=== PATIENT | female | born 1965 | race Caucasian/White ===

== ENCOUNTER 2020-06-18 13:20 | Inpatient (IN) | payer BC, SELFPAY ==
[2020-06-18] MEDS ORDERED: Ondansetron PF 4 MG/2 ML Vial ONE (13:39)
[2020-06-18 14:22] LABS: #Eosinphils 0.1 thou/uL (0.0-0.7); #Lymphocytes 0.9 thou/uL (1.20-3.40); #Monocytes 0.5 thou/uL (0.11-0.59); #Neutrophils 4.2 thou/uL (1.40-6.50); %Basophils 0.6 % (0.0-1.0); %Lymphocytes 15.9 % (21.0-51.0); %Monocytes 8.9 % (0.0-10.0); %Neutrophils 73.6 % (42.0-75.0); Mean Corpuscular HGB CONC 29.8 g/dL (32.0-36.0); Mean Corpuscular Hemoglobin 22.5 pg (27.0-31.0); Mean Corpuscular Volume 75.4 fL (78.0-98.0); Platelet Count 217 thou/uL (130-400); RBC Distribution Width 20.6 % (11.5-14.5); Red Blood Cell (RBC) Count 3.55 mill/uL (4.20-5.40); White Blood Cell (WBC) Count 5.6 thou/uL (4.8-10.8)
[2020-06-18 14:44] LABS: ALT (SGPT) 29 U/L (8-55); AST (SGOT) 66 U/L (5-34); Albumin 2.8 g/dL (3.5-5.0); Alkaline Phosphatase 106 U/L (40-110); Anion Gap 15 mmol/L (10-20); Anisocytosis SLIGHT = 6-15 cells (100X) (0-5/hpf); BUN (Urea Nitrogen) 5 mg/dL (9.8-20.1); Bilirubin, Total 0.6 mg/dL (0.2-1.2); Calc. Creatinine Clearance 0 mL/min (70-130); Calcium 8.1 mg/dL (7.8-10.44); Carbon Dioxide 20 mmol/L (22-29); Chloride 105 mmol/L (98-107); Globulin 4.7 g/dL (2.4-3.5); Glucose 96 mg/dL (70-105); Hypochromia MODERATE=16-30 cells (100X) (0-5/hpf); MDiff Complete? YES; Microcytosis SLIGHT = 6-15 cells (100X) (0-5/hpf); Platelet Morphology Comment Appears Adequate; Polychromasia SLIGHT = 2-3 cells (100X) (0-2/hpf); Potassium 3.9 mmol/L (3.5-5.1); Protein, Total 7.5 g/dL (6.0-8.3); Reflex for Review?? NO; Sodium 136 mmol/L (136-145); Target Cells MODERATE= 6-15 cells (100X) (0-1/hpf); Tear Drops SLIGHT = 2-5 cells (100X) (0-1/hpf)
[2020-06-18 17:21] LABS: Bilirubin Negative (Negative); Blood, Urine Negative (Negative); Clarity Clear (Clear); Glucose, Urine (Dipstick) Normal (Negative); Ketone, Urine Negative (Negative); Leukocyte 75 Leu/uL (Negative); Nitrite Negative (Negative); Protein, Urine (Dipstick) Negative (Neg-Trace); RBC/HPF 0-3 HPF (0-3); Specific Gravity, Urine 1.012 (1.002-1.036); Squamous Epithelial 0-3 HPF (0-3); Urobilinogen Normal mg/dL (Less than 2); WBC/HPF 0-3 HPF (0-3)
[2020-06-18 17:31] LABS: Bacteria/HPF 2+ HPF (None Seen)
[2020-06-18 17:45] LABS: Iron 19 ug/dL (50-170); Iron Binding Capacity, Total 296 mcg/dL (265-497)
[2020-06-18 17:45] LABS: Acetaminophen Less than 6.0 mcg/mL (10.0-30.0); Alcohol Less than 10 mg/dL (Less than 10); Salicylate Less than 8.0 mg/dL (15.0-30.0)
[2020-06-18 17:50] LABS: Troponin I Less than 0.010 ng/mL (< 0.028)
[2020-06-18] MEDS ORDERED: Ondansetron ODT 4 MG TAB PO PRN (18:16)
[2020-06-18] MEDS ORDERED: Ondansetron PF 4 MG/2 ML Vial IVP PRN (18:16)
[2020-06-18] MEDS ORDERED: Senokot S 8.6-50 MG TAB PO PRN (18:16)
[2020-06-18] MEDS ORDERED: Bisacodyl 5 MG TAB PO PRN (18:16)
[2020-06-18 18:21] VITALS: BMI 31.6
[2020-06-18] MEDS ORDERED: Gabapentin 300 MG CAP PO SCH (20:30)
[2020-06-18 20:59] LABS: Troponin I Less than 0.010 ng/mL (< 0.028)
[2020-06-18] MEDS: Polyethylene Glycol 3350 17 GM Packet PO SCH (21:59)
[2020-06-18] MEDS: Enoxaparin Sodium 80 MG/0.8 ML SYRINGE SC SCH (22:00)
[2020-06-18] MEDS: Sodium Chloride 0.9% 1,000 ML IV SCH (22:00)
[2020-06-19 05:12] LABS: Anion Gap 14 mmol/L (10-20); BUN (Urea Nitrogen) 6 mg/dL (9.8-20.1); Calc. Creatinine Clearance 136 mL/min (70-130); Calcium 7.7 mg/dL (7.8-10.44); Carbon Dioxide 19 mmol/L (22-29); Chloride 107 mmol/L (98-107); Glucose 85 mg/dL (70-105); Sodium 136 mmol/L (136-145)
[2020-06-19 05:28] LABS: #Eosinphils 0.1 thou/uL (0.0-0.7); #Lymphocytes 1.5 thou/uL (1.20-3.40); #Monocytes 0.5 thou/uL (0.11-0.59); #Neutrophils 2.6 thou/uL (1.40-6.50); %Basophils 0.9 % (0.0-1.0); %Eosinophils 1.4 % (0.0-10.0); %Lymphocytes 32.2 % (21.0-51.0); %Monocytes 10.9 % (0.0-10.0); %Neutrophils 54.6 % (42.0-75.0); Hemoglobin 7.1 g/dL (12.0-16.0); Mean Corpuscular HGB CONC 29.5 g/dL (32.0-36.0); Mean Corpuscular Hemoglobin 22.3 pg (27.0-31.0); Mean Corpuscular Volume 75.6 fL (78.0-98.0); Mean Platelet Volume 10.1 fL (7.4-10.4); Platelet Count 180 thou/uL (130-400); RBC Distribution Width 20.7 % (11.5-14.5); Red Blood Cell (RBC) Count 3.17 mill/uL (4.20-5.40); White Blood Cell (WBC) Count 4.8 thou/uL (4.8-10.8)
[2020-06-19] MEDS: Levothyroxine Sodium 75 MCG TAB PO SCH (05:53)
[2020-06-19 06:19] LABS: SARS-CoV-2 PCR by NAA Not Detected (NotDetected)
[2020-06-19] MEDS: Polyethylene Glycol 3350 17 GM Packet PO SCH ×3 (09:04→20:27)
[2020-06-19] MEDS: Enoxaparin Sodium 80 MG/0.8 ML SYRINGE SC SCH ×2 (10:40→20:28)
[2020-06-19 12:39] LABS: Hemoglobin 7.9 g/dL (12.0-16.0); Platelet Count 197 thou/uL (130-400)
[2020-06-19] MEDS: Lubiprostone 24 MCG CAP PO SCH (13:09)
[2020-06-19] MEDS: Sodium Chloride 0.9% 1,000 ML IV SCH (13:10)
[2020-06-19] MEDS: Ferrous Sulfate 325 MG TAB PO SCH (17:35)
[2020-06-19] MEDS: Flecainide 50 MG TAB PO SCH (20:28)
[2020-06-19] MEDS: predniSONE 50 MG TAB PO SCH (20:28)
[2020-06-20] MEDS: predniSONE 50 MG TAB PO SCH ×2 (02:26→08:31)
[2020-06-20] MEDS: Levothyroxine Sodium 75 MCG TAB PO SCH (05:27)
[2020-06-20] MEDS ORDERED: Sodium Chloride 0.9% 10 ML ONE (07:58)
[2020-06-20] MEDS ORDERED: diphenhydrAMINE 50 MG CAP PO SCH (08:00)
[2020-06-20] MEDS: Lubiprostone 24 MCG CAP PO SCH (08:28)
[2020-06-20] MEDS: Polyethylene Glycol 3350 17 GM Packet PO SCH ×3 (08:29→20:53)
[2020-06-20] MEDS: Ferrous Sulfate 325 MG TAB PO SCH ×2 (08:29→17:04)
[2020-06-20] MEDS: Flecainide 50 MG TAB PO SCH ×2 (08:30→20:53)
[2020-06-20] MEDS: Enoxaparin Sodium 80 MG/0.8 ML SYRINGE SC SCH ×2 (08:31→20:53)
[2020-06-20 12:21] LABS: Hemoglobin 7.4 g/dL (12.0-16.0); Mean Corpuscular HGB CONC 29.7 g/dL (32.0-36.0); Mean Corpuscular Hemoglobin 22.6 pg (27.0-31.0); Mean Corpuscular Volume 76.3 fL (78.0-98.0); Mean Platelet Volume 10.1 fL (7.4-10.4); Platelet Count 208 thou/uL (130-400); RBC Distribution Width 21.3 % (11.5-14.5); Red Blood Cell (RBC) Count 3.27 mill/uL (4.20-5.40); White Blood Cell (WBC) Count 6.4 thou/uL (4.8-10.8)
[2020-06-21] MEDS: Levothyroxine Sodium 75 MCG TAB PO SCH (06:01)
[2020-06-21] MEDS: Ferrous Sulfate 325 MG TAB PO SCH (09:43)
[2020-06-21] MEDS: Polyethylene Glycol 3350 17 GM Packet PO SCH ×2 (09:43→09:47)
[2020-06-21] MEDS: Lubiprostone 24 MCG CAP PO SCH (09:43)
[2020-06-21] MEDS: Flecainide 50 MG TAB PO SCH (09:43)
[2020-06-21] MEDS: Enoxaparin Sodium 80 MG/0.8 ML SYRINGE SC SCH (09:44)
[2020-06-21] MEDS ORDERED: Apixaban 5 MG TAB PO SCH ×2 (10:45→21:00)
[2020-06-21 12:04] VITALS: BP 109/64; TEMP 97.7
== END 2020-06-21 12:30 | disposition home or self-care (01) | DRG 309 ==
LOC: ERS 13:20 → 2NO 16:17
PROVIDERS: ADMIT Internal Medicine; ATTEND Internal Medicine
DX: I48.91 Unspecified atrial fibrillation (principal); K92.1 Melena; E86.0 Dehydration; Z20.822 Contact with and (suspected) exposure to COVID-19; K59.09 Other constipation; E03.9 Hypothyroidism, unspecified; D50.9 Iron deficiency anemia, unspecified; D63.8 Anemia in other chronic diseases classified elsewhere; I95.1 Orthostatic hypotension; Z88.5 Allergy status to narcotic agent; Z91.041 Radiographic dye allergy status; Z91.018 Allergy to other foods; Z90.49 Acquired absence of other specified parts of digestive tract; Z90.710 Acquired absence of both cervix and uterus; Z88.7 Allergy status to serum and vaccine; Z79.890 Hormone replacement therapy; Z79.899 Other long term (current) drug therapy; Z98.84 Bariatric surgery status
CPT/HCPCS: 36415; 36430; 71045; 71275; 76705; 80048; 80053; 80307; 81003; 81015; 82728; 83540; 83550; 83605; 83880; 84443; 84484; 85025; 85027; 85379; 86850; 86900; 86901; 87635; 93005; 93010; 93306; 96374; J1650; J2405; J7512; P9016; U0003; U0005

== ENCOUNTER 2021-03-17 10:10 | Day surgery (SDC) | payer BC ==
[2021-03-16 13:48] VITALS: BMI 30.7
[2021-03-17] MEDS ORDERED: PROPOFOL 20 ML ONE ×2 (11:27→12:14)
[2021-03-17] MEDS ORDERED: Fentanyl 100 MCG/2 ML VIAL ONE (12:14)
== END 2021-03-17 13:38 | disposition home or self-care (01) ==
LOC: CCL 10:10
PROVIDERS: ATTEND Internal Medicine Cardiovascular Disease
PROC: B246ZZ4 Ultrasonography of Right and Left Heart, Transesophageal (ICD-10-PCS; principal; 2021-03-17)
PROC: 5A2204Z Restoration of Cardiac Rhythm, Single (ICD-10-PCS; principal; 2021-03-17)
DX: I48.91 Unspecified atrial fibrillation (principal); I11.9 Hypertensive heart disease without heart failure; I08.8 Other rheumatic multiple valve diseases; H53.8 Other visual disturbances; E03.9 Hypothyroidism, unspecified; Z79.01 Long term (current) use of anticoagulants; Z79.899 Other long term (current) drug therapy; Z88.5 Allergy status to narcotic agent; Z88.7 Allergy status to serum and vaccine; Z91.018 Allergy to other foods
CPT/HCPCS: 92960; 93005; 93010; 93312; J2704; J3010

== ENCOUNTER 2022-07-18 12:50 | Inpatient (IN) | payer BC, SELFPAY ==
[~2022-07-18 12:50] MED LIST: Iopamidol-370 76% 500 ML 1 ML ONE
[2022-07-18] MEDS ORDERED: NOREPINEPHRINE 8 MG/250 ML-D5W 250 ML ONE (13:10)
[2022-07-18] MEDS ORDERED: Albumin 25% 25 GM/100 ML BOT IVPB SCH (13:15)
[2022-07-18] MEDS ORDERED: NS 0.9% w/ 40 MEQ KCL 1,000 ML IV SCH (14:00)
[2022-07-18 14:06] LABS: #Eosinphils 0.1 thou/uL (0.0-0.7); #Lymphocytes 0.8 thou/uL (1.20-3.40); #Monocytes 0.1 thou/uL (0.11-0.59); #Neutrophils 2.5 thou/uL (1.40-6.50); %Basophils 0.4 % (0.0-1.0); %Eosinophils 1.6 % (0.0-10.0); %Lymphocytes 22.7 % (21.0-51.0); %Neutrophils 73.3 % (42.0-75.0); Hemoglobin 5.9 g/dL (12.0-16.0); Mean Corpuscular HGB CONC 29.6 g/dL (32.0-36.0); Mean Corpuscular Hemoglobin 34.3 pg (27.0-31.0); RBC Distribution Width 20.3 % (11.5-14.5); Red Blood Cell (RBC) Count 1.71 mill/uL (4.20-5.40); White Blood Cell (WBC) Count 3.4 10x3/uL (4.8-10.8)
[2022-07-18 14:14] LABS: ALT (SGPT) 16 U/L (8-55); AST (SGOT) 58 U/L (5-34); Albumin 1.5 g/dL (3.5-5.0); Alkaline Phosphatase 244 U/L (40-110); Anion Gap 16 mmol/L (10-20); BUN (Urea Nitrogen) 4 mg/dL (9.8-20.1); Bilirubin, Total 5.8 mg/dL (0.2-1.2); Calc. Creatinine Clearance 0 mL/min (70-130); Carbon Dioxide 14 mmol/L (22-29); Chloride 108 mmol/L (98-107); Estimated GFR 98; Globulin 4.3 g/dL (2.4-3.5); Glucose 85 mg/dL (70-105); Potassium 2.8 mmol/L (3.5-5.1); Protein, Total 5.8 g/dL (6.0-8.3); Sodium 135 mmol/L (136-145)
[2022-07-18 14:19] LABS: Calcium 6.9 mg/dL (7.8-10.44)
[2022-07-18 14:37] LABS: Hypochromia SLIGHT = 6-15 cells (100X) (0-5/hpf); MDiff Complete? YES; Macrocytosis MODERATE=16-30 cells (100X) (0-5/hpf); Ovalocytes SLIGHT = 2-5 cells (100X) (0-1/hpf); Platelet Count 102 10x3/uL (130-400); Platelet Morphology Comment Appears Decreased; Polychromasia SLIGHT = 2-3 cells (100X) (0-2/hpf); Target Cells SLIGHT = 2-5 cells (100X) (0-1/hpf)
[2022-07-18 14:42] LABS: INR-International Normal Ratio 1.8; PTT 35.6 sec (22.9-36.1); Prothrombin Time 21.8 sec (12.0-14.7)
[2022-07-18] MEDS ORDERED: Lidocaine 1% PF 5 ML VIAL ONE (14:55)
[2022-07-18 14:57] LABS: #Lymphocytes 0.7 thou/uL (1.20-3.40); #Monocytes 0.2 thou/uL (0.11-0.59); #Neutrophils 6.1 thou/uL (1.40-6.50); %Basophils 0.1 % (0.0-1.0); %Eosinophils 0.3 % (0.0-10.0); %Monocytes 2.8 % (0.0-10.0); %Neutrophils 86.9 % (42.0-75.0); Hemoglobin 7.2 g/dL (12.0-16.0); Mean Corpuscular Hemoglobin 34.4 pg (27.0-31.0); Platelet Count 115 10x3/uL (130-400); RBC Distribution Width 20.3 % (11.5-14.5); White Blood Cell (WBC) Count 7.1 10x3/uL (4.8-10.8)
[2022-07-18 15:20] LABS: ALT (SGPT) 18 U/L (8-55); AST (SGOT) 64 U/L (5-34); Albumin 1.6 g/dL (3.5-5.0); Alkaline Phosphatase 263 U/L (40-110); Bilirubin, Direct 4.6 mg/dL (0.1-0.3); Bilirubin, Total 6.5 mg/dL (0.2-1.2); Lipase 8 U/L (8-78); Protein, Total 6.1 g/dL (6.0-8.3)
[2022-07-18] MEDS ORDERED: Sodium Chloride 0.9% 100 ML ONE (15:20)
[2022-07-18] MEDS ORDERED: cefTRIAXone\\ROCEPHIN 2 GM VIAL ONE (15:20)
[2022-07-18] MEDS ORDERED: Famotidine/PF 20 mg/2ml Vial ONE (15:39)
[2022-07-18] MEDS ORDERED: methylPREDNISolone Sod Succ/PF 125 MG/2 ML VIAL ONE (15:39)
[2022-07-18] MEDS ORDERED: diphenhydrAMINE 50 MG/ML VIAL ONE (15:39)
[2022-07-18] MEDS ORDERED: CALCIUM GLUC 1 GM/NS 50 ML BAG ONE (16:14)
[2022-07-18 16:18] LABS: SARS-CoV-2 NAA Rapid Test DETECTED (NotDetected)
[2022-07-18] MEDS ORDERED: Aspirin Chewable 81 MG TAB ONE (16:42)
[2022-07-18] MEDS ORDERED: Calcium Gluconate 13.8 MEQ in Sodium Chloride 0.9% 250 ML 250 ML IVPB SCH (16:45)
[2022-07-18 16:56] LABS: Lactic Acid 9.6 mmol/L (0.5-2.2)
[2022-07-18] MEDS ORDERED: metroNIDAZOLE 500 MG/100 ML BAG ONE (18:14)
[2022-07-18 20:09] VITALS: BMI 31.7
[2022-07-18 20:10] LABS: Troponin I 0.013 ng/mL (< 0.028)
[2022-07-18] MEDS ORDERED: Melatonin 3 MG TAB PO PRN (20:39)
[2022-07-18] MEDS ORDERED: Sodium Chloride 0.9% 1,000 ML IV SCH (21:00)
[2022-07-18] MEDS ORDERED: Pantoprazole 40 MG VIAL IVP SCH (21:00)
[2022-07-18] MEDS ORDERED: Multivitamin W/ Minerals 1 TAB PO SCH (21:15)
[2022-07-18] MEDS ORDERED: Folic Acid 1 MG TAB PO SCH (21:15)
[2022-07-18] MEDS: cefTRIAXone\\ROCEPHIN 1 GM in Sodium Chloride 0.9% 100 ML IVPB SCH (21:26)
[2022-07-18 23:21] LABS: Hemoglobin 7.6 g/dL (12.0-16.0)
[2022-07-18 23:41] LABS: ALT (SGPT) 19 U/L (8-55); AST (SGOT) 60 U/L (5-34); Albumin 1.7 g/dL (3.5-5.0); Alkaline Phosphatase 219 U/L (40-110); Anion Gap 15 mmol/L (10-20); BUN (Urea Nitrogen) 5 mg/dL (9.8-20.1); Bilirubin, Total 8.3 mg/dL (0.2-1.2); Calc. Creatinine Clearance 123 mL/min (70-130); Calcium 7.6 mg/dL (7.8-10.44); Carbon Dioxide 16 mmol/L (22-29); Chloride 111 mmol/L (98-107); Estimated GFR 101; Globulin 4.3 g/dL (2.4-3.5); Glucose 107 mg/dL (70-105); Potassium 3.5 mmol/L (3.5-5.1); Sodium 138 mmol/L (136-145)
[2022-07-18 23:50] LABS: Lactic Acid 4.9 mmol/L (0.5-2.2)
[2022-07-18 23:52] LABS: Troponin I Less than 0.010 ng/mL (< 0.028)
[2022-07-19 03:14] LABS: Bacteria/HPF None Seen HPF (None Seen); Bilirubin 1+ (Negative); Blood, Urine 2+ (Negative); CAUTI Indications for Culture Pelvic or flank pain; Clarity Clear (Clear); Glucose, Urine (Dipstick) Normal (Negative); Ketone, Urine Negative (Negative); Leukocyte Negative Leu/uL (Negative); Nitrite Negative (Negative); Protein, Urine (Dipstick) Negative (Neg-Trace); RBC/HPF 0-3 HPF (0-3); Specific Gravity, Urine 1.031 (1.002-1.036); Squamous Epithelial 0-3 HPF (0-3); Urobilinogen 3 mg/dL (Less than 2); pH, Urine 5.5 (5.0-9.0)
[2022-07-19 03:27] LABS: Urine Culture Reflex No No
[2022-07-19 05:20] LABS: #Lymphocytes 0.8 thou/uL (1.20-3.40); #Monocytes 0.2 thou/uL (0.11-0.59); #Neutrophils 8.1 thou/uL (1.40-6.50); %Basophils 0.1 % (0.0-1.0); %Lymphocytes 8.4 % (21.0-51.0); %Monocytes 2.2 % (0.0-10.0); %Neutrophils 89.3 % (42.0-75.0); Hemoglobin 7.5 g/dL (12.0-16.0); Mean Corpuscular HGB CONC 32.2 g/dL (32.0-36.0); Mean Corpuscular Hemoglobin 33.6 pg (27.0-31.0); Mean Platelet Volume 8.3 fL (7.4-10.4); Platelet Count 92 10x3/uL (130-400); RBC Distribution Width 20.7 % (11.5-14.5); Red Blood Cell (RBC) Count 2.22 mill/uL (4.20-5.40)
[2022-07-19 05:36] LABS: ALT (SGPT) 18 U/L (8-55); AST (SGOT) 58 U/L (5-34); Albumin 1.6 g/dL (3.5-5.0); Alkaline Phosphatase 206 U/L (40-110); Anion Gap 13 mmol/L (10-20); BUN (Urea Nitrogen) 5 mg/dL (9.8-20.1); Bilirubin, Total 7.8 mg/dL (0.2-1.2); Calc. Creatinine Clearance 129 mL/min (70-130); Calcium 7.6 mg/dL (7.8-10.44); Carbon Dioxide 17 mmol/L (22-29); Chloride 111 mmol/L (98-107); Estimated GFR 102; Globulin 4.4 g/dL (2.4-3.5); Glucose 111 mg/dL (70-105); Potassium 3.3 mmol/L (3.5-5.1); Sodium 138 mmol/L (136-145)
[2022-07-19] MEDS ORDERED: metroNIDAZOLE 500 MG in Premix Bag 1 BAG IVPB SCH (07:15)
[2022-07-19] MEDS: Lactated Ringer's 1,000 ML IV SCH ×2 (07:41→17:53)
[2022-07-19] MEDS: Potassium Chloride 20 MEQ in Premix Bag 1 BAG IVPB SCH ×2 (07:41→09:58)
[2022-07-19] MEDS: Pantoprazole 40 MG VIAL IVP SCH (07:42)
[2022-07-19] MEDS: Multivitamin W/ Minerals 1 TAB PO SCH (07:42)
[2022-07-19] MEDS ORDERED: Non-Formulary Item 1 EACH (Levothyroxine Sodium [Levothyroxine] 75 MCG Capsule) PO SCH (09:00)
[2022-07-19] MEDS ORDERED: Folic Acid 1 MG TAB PO SCH (09:00)
[2022-07-19] MEDS: Albumin 25% 25 GM/100 ML BOT IVPB SCH ×2 (13:20→17:53)
[2022-07-19] MEDS: metroNIDAZOLE 500 MG in Premix Bag 1 BAG IVPB SCH ×2 (13:28→21:09)
[2022-07-19] MEDS ORDERED: Multivitamins, Adult 10 ML, Folic Acid 1 MG, Thiamine HCl 100 MG in Dextrose 5 %-0.45 %... IV SCH (14:00)
[2022-07-19 14:01] LABS: Hemoglobin 7.8 g/dL (12.0-16.0)
[2022-07-19 14:05] LABS: Amphetamine Not Detected (NotDetected); Barbiturates Screen Not Detected (NotDetected); Benzodiazepine Screen Not Detected (NotDetected); Cocaine Metabolite Screen Not Detected (NotDetected); Methadone Not Detected (NotDetected); Methamphetamine Not Detected (NotDetected); Opiate Screen Not Detected (NotDetected); Oxycodone Screen Not Detected (NotDetected); Phencyclidine (PCP) Not Detected (NotDetected); THC/Cannabinoid Screen Not Detected (NotDetected); Tricyclic Screen Not Detected (NotDetected)
[2022-07-19 14:07] LABS: Acetaminophen Less than 10.0 mcg/mL (10.0-30.0); Alcohol Less than 10 mg/dL (Less than 10)
[2022-07-19 14:28] LABS: HBCM Index 0.18 S/CO (0-0.79); HBSAg Index 0.32 S/CO (0-0.99); Hep A IgM AB Non-Reactive (NonReactive); Hep A IgM S/CO 0.25 S/CO (0-0.79); Hep B Surf Ag Non-Reactive S/CO (NonReactive); Hep C IgG Ab Non-Reactive (NonReactive); Hep C Index 0.29 S/CO (0-0.79); Hepatitis B Core IgM Abs Non-Reactive (NonReactive)
[2022-07-19] MEDS: Thiamine HCl 200 MG/2 ML VIAL SLOW IVP SCH (15:17)
[2022-07-19 16:17] LABS: Campy jejuni + coli by PCR Negative (Negative); STEC Shiga Toxin 1+2 Negative (Negative); Salmonella spp. by PCR Negative (Negative); Shigella spp + EIEC by PCR Negative (Negative)
[2022-07-19] MEDS: cefTRIAXone\\ROCEPHIN 1 GM in Sodium Chloride 0.9% 100 ML IVPB SCH (21:09)
[2022-07-19 21:25] LABS: Hemoglobin 6.7 g/dL (12.0-16.0)
[2022-07-20] MEDS: Albumin 25% 25 GM/100 ML BOT IVPB SCH ×2 (00:32→05:26)
[2022-07-20] MEDS: Lactated Ringer's 1,000 ML IV SCH ×3 (04:10→20:38)
[2022-07-20 04:13] LABS: #Lymphocytes 1.6 thou/uL (1.20-3.40); #Monocytes 0.2 thou/uL (0.11-0.59); %Basophils 0.1 % (0.0-1.0); %Eosinophils 0.3 % (0.0-10.0); %Lymphocytes 22.8 % (21.0-51.0); %Monocytes 3.4 % (0.0-10.0); %Neutrophils 73.4 % (42.0-75.0); Mean Corpuscular HGB CONC 32.5 g/dL (32.0-36.0); Mean Corpuscular Hemoglobin 33.9 pg (27.0-31.0); Mean Platelet Volume 8.4 fL (7.4-10.4); Platelet Count 82 10x3/uL (130-400); RBC Distribution Width 19.7 % (11.5-14.5); Red Blood Cell (RBC) Count 2.06 mill/uL (4.20-5.40); White Blood Cell (WBC) Count 6.9 10x3/uL (4.8-10.8)
[2022-07-20 04:29] LABS: ALT (SGPT) 13 U/L (8-55); AST (SGOT) 36 U/L (5-34); Albumin 2.5 g/dL (3.5-5.0); Alkaline Phosphatase 164 U/L (40-110); Bilirubin, Direct 4.4 mg/dL (0.1-0.3); Bilirubin, Total 6.5 mg/dL (0.2-1.2)
[2022-07-20 04:31] LABS: ALT (SGPT) 13 U/L (8-55); AST (SGOT) 36 U/L (5-34); Albumin 2.5 g/dL (3.5-5.0); Alkaline Phosphatase 163 U/L (40-110); Anion Gap 9 mmol/L (10-20); BUN (Urea Nitrogen) 5 mg/dL (9.8-20.1); Bilirubin, Total 6.4 mg/dL (0.2-1.2); Calc. Creatinine Clearance 127 mL/min (70-130); Calcium 7.9 mg/dL (7.8-10.44); Carbon Dioxide 20 mmol/L (22-29); Chloride 109 mmol/L (98-107); Estimated GFR 102; Globulin 3.6 g/dL (2.4-3.5); Glucose 66 mg/dL (70-105); Potassium 3.2 mmol/L (3.5-5.1); Protein, Total 6.1 g/dL (6.0-8.3); Sodium 135 mmol/L (136-145)
[2022-07-20] MEDS: Levothyroxine Sodium 75 MCG TAB PO SCH (05:26)
[2022-07-20] MEDS: metroNIDAZOLE 500 MG in Premix Bag 1 BAG IVPB SCH ×3 (05:27→21:38)
[2022-07-20] MEDS: Multivitamin W/ Minerals 1 TAB PO SCH (07:47)
[2022-07-20] MEDS: Pantoprazole 40 MG VIAL IVP SCH (07:48)
[2022-07-20] MEDS ORDERED: Potassium Chloride 20 MEQ TAB PO SCH ×2 (08:15→21:15)
[2022-07-20 10:53] LABS: INR-International Normal Ratio 1.7; PTT 37.9 sec (22.9-36.1); Prothrombin Time 20.5 sec (12.0-14.7)
[2022-07-20 13:31] LABS: ANA Symphony (Qualitative) Negative (Negative); ANA Symphony (Quantitative) 0.6 Ratio (< 0.7 Negative); EliA Vaculitis New Method **** NEW METHOD ****; Mitochondrial Ab 1.5 U/mL (<4 Negative); dsDNA IgG Antibody 1.9 IU/mL (<10 Negative)
[2022-07-20] MEDS: Thiamine HCl 200 MG/2 ML VIAL SLOW IVP SCH (14:42)
[2022-07-20] MEDS: Folic Acid 1 MG in Syringe 0 ML IVP SCH (14:43)
[2022-07-20 20:03] LABS: Hemoglobin 8.4 g/dL (12.0-16.0)
[2022-07-20 20:16] LABS: Anion Gap 12 mmol/L (10-20); BUN (Urea Nitrogen) 5 mg/dL (9.8-20.1); Calc. Creatinine Clearance 140 mL/min (70-130); Calcium 8.1 mg/dL (7.8-10.44); Carbon Dioxide 18 mmol/L (22-29); Chloride 107 mmol/L (98-107); Estimated GFR 104; Glucose 76 mg/dL (70-105); Potassium 3.4 mmol/L (3.5-5.1); Sodium 134 mmol/L (136-145)
[2022-07-20] MEDS: cefTRIAXone\\ROCEPHIN 1 GM in Sodium Chloride 0.9% 100 ML IVPB SCH (21:36)
[2022-07-21] MEDS: Levothyroxine Sodium 75 MCG TAB PO SCH (06:34)
[2022-07-21] MEDS: metroNIDAZOLE 500 MG in Premix Bag 1 BAG IVPB SCH ×3 (06:34→21:48)
[2022-07-21 06:37] LABS: #Lymphocytes 1.4 thou/uL (1.20-3.40); #Monocytes 0.4 thou/uL (0.11-0.59); #Neutrophils 4.4 thou/uL (1.40-6.50); %Basophils 0.2 % (0.0-1.0); %Eosinophils 0.6 % (0.0-10.0); %Lymphocytes 22.4 % (21.0-51.0); %Monocytes 5.9 % (0.0-10.0); Hemoglobin 8.2 g/dL (12.0-16.0); INR-International Normal Ratio 1.7; Mean Corpuscular HGB CONC 32.9 g/dL (32.0-36.0); Mean Corpuscular Hemoglobin 33.9 pg (27.0-31.0); Mean Platelet Volume 8.5 fL (7.4-10.4); PTT 38.1 sec (22.9-36.1); Platelet Count 71 10x3/uL (130-400); Prothrombin Time 20.9 sec (12.0-14.7); RBC Distribution Width 19.6 % (11.5-14.5); Red Blood Cell (RBC) Count 2.42 mill/uL (4.20-5.40); White Blood Cell (WBC) Count 6.1 10x3/uL (4.8-10.8)
[2022-07-21 06:50] LABS: ALT (SGPT) 12 U/L (8-55); AST (SGOT) 29 U/L (5-34); Albumin 2.5 g/dL (3.5-5.0); Alkaline Phosphatase 169 U/L (40-110); Anion Gap 11 mmol/L (10-20); BUN (Urea Nitrogen) 5 mg/dL (9.8-20.1); Bilirubin, Total 8.1 mg/dL (0.2-1.2); Calc. Creatinine Clearance 140 mL/min (70-130); Calcium 7.9 mg/dL (7.8-10.44); Carbon Dioxide 18 mmol/L (22-29); Chloride 108 mmol/L (98-107); Estimated GFR 104; Globulin 3.6 g/dL (2.4-3.5); Glucose 70 mg/dL (70-105); Potassium 3.6 mmol/L (3.5-5.1); Protein, Total 6.1 g/dL (6.0-8.3); Sodium 133 mmol/L (136-145)
[2022-07-21] MEDS: Multivitamin W/ Minerals 1 TAB PO SCH (08:06)
[2022-07-21] MEDS: Pantoprazole 40 MG VIAL IVP SCH (08:06)
[2022-07-21] MEDS ORDERED: Albumin 25% 25 GM/100 ML BOT IVPB SCH (09:00)
[2022-07-21 09:15] LABS: Magnesium 1.7 mg/dL (1.6-2.6); Phosphorus 2.6 mg/dL (2.3-4.7)
[2022-07-21 10:17] LABS: Follow-up Chemistry Comp? YES; Follow-up Result - Chemistry REPORT FAXED
[2022-07-21] MEDS: Diltiazem HCl SR 60 mg Capsule PO SCH ×2 (11:15→21:48)
[2022-07-21] MEDS ORDERED: Lactated Ringer's 1,000 ML IV SCH (11:15)
[2022-07-21] MEDS ORDERED: Dextrose 5% in Water 1,000 ML IV PRN (14:52)
[2022-07-21] MEDS ORDERED: Dextrose 50% Abboject 50 ML SYRINGE SLOW IVP PRN (14:52)
[2022-07-21] MEDS ORDERED: Furosemide 40 MG/4 ML VIAL SLOW IVP SCH (15:00)
[2022-07-21] MEDS: Thiamine HCl 200 MG/2 ML VIAL SLOW IVP SCH (15:26)
[2022-07-21] MEDS: Folic Acid 1 MG in Syringe 0 ML IVP SCH (15:27)
[2022-07-21] MEDS: cefTRIAXone\\ROCEPHIN 1 GM in Sodium Chloride 0.9% 100 ML IVPB SCH (21:48)
[2022-07-22] MEDS: Levothyroxine Sodium 75 MCG TAB PO SCH (05:53)
[2022-07-22] MEDS: metroNIDAZOLE 500 MG in Premix Bag 1 BAG IVPB SCH ×2 (05:53→15:12)
[2022-07-22 06:00] LABS: #Eosinphils 0.1 thou/uL (0.0-0.7); #Lymphocytes 1.2 thou/uL (1.20-3.40); #Monocytes 0.6 thou/uL (0.11-0.59); #Neutrophils 3.1 thou/uL (1.40-6.50); %Basophils 0.3 % (0.0-1.0); %Eosinophils 1.9 % (0.0-10.0); %Lymphocytes 24.6 % (21.0-51.0); %Monocytes 11.1 % (0.0-10.0); %Neutrophils 62.1 % (42.0-75.0); Hemoglobin 8.5 g/dL (12.0-16.0); Mean Corpuscular HGB CONC 32.6 g/dL (32.0-36.0); Mean Corpuscular Hemoglobin 33.8 pg (27.0-31.0); Mean Platelet Volume 8.9 fL (7.4-10.4); Platelet Count 70 10x3/uL (130-400); RBC Distribution Width 19.5 % (11.5-14.5); Red Blood Cell (RBC) Count 2.51 mill/uL (4.20-5.40)
[2022-07-22 06:14] LABS: ALT (SGPT) 10 U/L (8-55); AST (SGOT) 26 U/L (5-34); Albumin 2.6 g/dL (3.5-5.0); Alkaline Phosphatase 191 U/L (40-110); Anion Gap 10 mmol/L (10-20); BUN (Urea Nitrogen) Less than 4 mg/dL (9.8-20.1); CK (CPK) 34 U/L (29-168); Calc. Creatinine Clearance 127 mL/min (70-130); Calcium 8.1 mg/dL (7.8-10.44); Carbon Dioxide 22 mmol/L (22-29); Chloride 106 mmol/L (98-107); Estimated GFR 102; Globulin 3.7 g/dL (2.4-3.5); Glucose 92 mg/dL (70-105); Potassium 2.9 mmol/L (3.5-5.1); Protein, Total 6.3 g/dL (6.0-8.3); Sodium 135 mmol/L (136-145)
[2022-07-22] MEDS ORDERED: Potassium Chloride 20 MEQ TAB PO SCH (08:00)
[2022-07-22] MEDS ORDERED: Albumin 25% 25 GM/100 ML BOT IVPB SCH (08:30)
[2022-07-22] MEDS: Multivitamin W/ Minerals 1 TAB PO SCH (09:01)
[2022-07-22] MEDS: Diltiazem HCl SR 60 mg Capsule PO SCH (09:01)
[2022-07-22] MEDS: Pantoprazole 40 MG VIAL IVP SCH (09:01)
[2022-07-22] MEDS ORDERED: Furosemide 40 MG/4 ML VIAL SLOW IVP SCH (10:30)
[2022-07-22 10:47] LABS: Magnesium 1.5 mg/dL (1.6-2.6)
[2022-07-22 12:04] LABS: Anion Gap 13 mmol/L (10-20); BUN (Urea Nitrogen) Less than 4 mg/dL (9.8-20.1); Calc. Creatinine Clearance 137 mL/min (70-130); Calcium 8.1 mg/dL (7.8-10.44); Carbon Dioxide 17 mmol/L (22-29); Chloride 107 mmol/L (98-107); Estimated GFR 104; Glucose 117 mg/dL (70-105); Potassium 3.3 mmol/L (3.5-5.1); Sodium 134 mmol/L (136-145)
[2022-07-22 12:25] VITALS: BP 97/61; TEMP 98.3
[2022-07-22] MEDS ORDERED: Magnesium 2 GM/50 ML(in water) 2 GM in Premix Bag 1 BAG IVPB SCH (14:30)
== END 2022-07-22 14:52 | disposition left against medical advice (07) | DRG 871 ==
LOC: ERS 12:50 → IMCU/EMU 18:33 → 2SW 07-21 18:09
PROVIDERS: ADMIT Emergency Medicine; ATTEND Emergency Medicine
PROC: 30233N1 Transfusion of Nonautologous Red Blood Cells into Peripheral Vein, Percutaneous Approach (ICD-10-PCS; principal; 2022-07-18)
PROC: 8E0ZXY6 Isolation (ICD-10-PCS; 2022-07-18)
PROC: 02HV33Z Insertion of Infusion Device into Superior Vena Cava, Percutaneous Approach (ICD-10-PCS; 2022-07-18)
PROC: 3E04329 Introduction of Other Anti-infective into Central Vein, Percutaneous Approach (ICD-10-PCS; 2022-07-18)
PROC: 3E043XZ Introduction of Vasopressor into Central Vein, Percutaneous Approach (ICD-10-PCS; 2022-07-18)
PROC: B548ZZA Ultrasonography of Superior Vena Cava, Guidance (ICD-10-PCS; 2022-07-18)
DX: A41.9 Sepsis, unspecified organism (principal); R57.1 Hypovolemic shock; U07.1 COVID-19; R65.21 Severe sepsis with septic shock; K51.00 Ulcerative (chronic) pancolitis without complications; E87.20 Acidosis, unspecified; K92.2 Gastrointestinal hemorrhage, unspecified; R18.8 Other ascites; E46 Unspecified protein-calorie malnutrition; I48.91 Unspecified atrial fibrillation; K59.09 Other constipation; E03.9 Hypothyroidism, unspecified; K62.89 Other specified diseases of anus and rectum; I95.9 Hypotension, unspecified; E87.6 Hypokalemia; E83.51 Hypocalcemia; K76.0 Fatty (change of) liver, not elsewhere classified; K80.20 Calculus of gallbladder without cholecystitis without obstruction; D50.9 Iron deficiency anemia, unspecified; D69.6 Thrombocytopenia, unspecified; I45.81 Long QT syndrome; Z98.84 Bariatric surgery status; Z79.01 Long term (current) use of anticoagulants; Z88.6 Allergy status to analgesic agent; Z91.018 Allergy to other foods; Z88.7 Allergy status to serum and vaccine; Z91.041 Radiographic dye allergy status; Z79.890 Hormone replacement therapy; Z79.899 Other long term (current) drug therapy; Z90.49 Acquired absence of other specified parts of digestive tract; K74.60 Unspecified cirrhosis of liver; E16.2 Hypoglycemia, unspecified; E87.8 Other disorders of electrolyte and fluid balance, not elsewhere classified; Z68.31 Body mass index [BMI] 31.0-31.9, adult
CPT/HCPCS: 36415; 36416; 36430; 36556; 71045; 71275; 72193; 74174; 76705; 80053; 80074; 80143; 80306; 80307; 81001; 82103; 82105; 82390; 82550; 83516; 83605; 83690; 83735; 83880; 84100; 84443; 84484; 85025; 85610; 85730; 86015; 86038; 86225; 86850; 86900; 86901; 87040; 87324; 87449; 87505; 93005; 94760; 96365; 96366; 96367; 96375; C9113; J0610; J0611; J0696; J1200; J1940; J2930; J3411; J3480; J3490; J7050; J7120; P9016; P9047; Q9967; S0028

== ENCOUNTER 2022-12-28 12:35 | Emergency (ER) | payer BC ==
[2022-12-28 13:19] LABS: #Monocytes 0.6 thou/uL (0.11-0.59); #Neutrophils 1.8 thou/uL (1.40-6.50); %Basophils 1.2 % (0.0-1.0); %Eosinophils 0.6 % (0.0-10.0); %Lymphocytes 25.2 % (21.0-51.0); %Neutrophils 54.8 % (42.0-75.0); Hematocrit 23.8 % (36.0-47.0); Hemoglobin 7.6 g/dL (12.0-16.0); Mean Corpuscular HGB CONC 31.9 g/dL (32.0-36.0); Mean Corpuscular Hemoglobin 38.4 pg (27.0-31.0); Mean Corpuscular Volume 120.2 fl (78.0-98.0); Mean Platelet Volume 9.8 fL (7.4-10.4); Platelet Count 116 10x3/uL (130-400); RBC Distribution Width 20.7 % (11.5-14.5); Red Blood Cell (RBC) Count 1.98 mill/uL (4.20-5.40); White Blood Cell (WBC) Count 3.3 10x3/uL (4.8-10.8)
[2022-12-28 13:46] LABS: INR-International Normal Ratio 1.8; PTT 45.8 sec (22.9-36.1); Prothrombin Time 21.9 sec (12.0-14.7)
[2022-12-28 13:49] LABS: ALT (SGPT) 41 U/L (8-55); AST (SGOT) 109 U/L (5-34); Albumin 2.2 g/dL (3.5-5.0); Alkaline Phosphatase 363 U/L (40-110); Anion Gap 19 mmol/L (10-20); BUN (Urea Nitrogen) Less than 4 mg/dL (9.8-20.1); Bilirubin, Total 17.3 mg/dL (0.2-1.2); Calc. Creatinine Clearance 0 mL/min (70-130); Calcium 7.9 mg/dL (7.8-10.44); Carbon Dioxide 17 mmol/L (22-29); Chloride 103 mmol/L (98-107); Estimated GFR 102; Globulin 4.5 g/dL (2.4-3.5); Glucose 56 mg/dL (70-105); Lipase 26 U/L (8-78); Potassium 2.8 mmol/L (3.5-5.1); Protein, Total 6.7 g/dL (6.0-8.3); Sodium 136 mmol/L (136-145)
[2022-12-28 14:16] LABS: Anisocytosis SLIGHT = 6-15 cells (100X) (0-5/hpf); Macrocytosis MODERATE=16-30 cells (100X) (0-5/hpf); Target Cells SLIGHT = 2-5 cells (100X) (0-1/hpf)
[2022-12-28 14:17] LABS: Platelet Adequacy Comment Appears Decreased
[2022-12-28] MEDS ORDERED: Piperacillin/Tazobactam 3.375 GM VIAL ONE (14:38)
[2022-12-28] MEDS ORDERED: Vancomycin 1.5 GRAM/300 ML BAG 1.5 GM in Premix Bag 1 BAG IVPB SCH (14:45)
[2022-12-28 16:15] LABS: Bacteria/HPF 3+ HPF (None Seen); Bilirubin 3+ (Negative); Blood, Urine 3+ (Negative); CAUTI Indications for Culture Dysuria,urgency,freq; Clarity Extra Turbid (Clear); Glucose, Urine (Dipstick) Normal (Negative); Ketone, Urine 10 mg/dL (Negative); Leukocyte 500 Leu/uL (Negative); Nitrite 2+ (Negative); Protein, Urine (Dipstick) 10 mg/dL (Neg-Trace); RBC/HPF 21-50 HPF (0-3); Renal Epithelial 0-3 HPF (None Seen); Specific Gravity, Urine 1.011 (1.002-1.036); WBC/HPF Greater than 50 HPF (0-3)
[2022-12-28 16:17] LABS: Urine Culture Reflex Yes Yes
[2022-12-28 16:45] LABS: Lactic Acid 3.5 mmol/L (0.5-2.2)
[2022-12-28 19:11] LABS: Amphetamine Not Detected (NotDetected); Barbiturates Screen Not Detected (NotDetected); Benzodiazepine Screen Not Detected (NotDetected); Cocaine Metabolite Screen Not Detected (NotDetected); Methadone Not Detected (NotDetected); Methamphetamine Not Detected (NotDetected); Opiate Screen Not Detected (NotDetected); Oxycodone Screen Not Detected (NotDetected); Phencyclidine (PCP) Not Detected (NotDetected); THC/Cannabinoid Screen Not Detected (NotDetected); Tricyclic Screen Not Detected (NotDetected)
[2022-12-28 19:23] LABS: Acetaminophen Less than 10 mcg/mL (10.0-30.0); Salicylate Less than 8.0 mg/dL (15.0-30.0)
[2022-12-28] MEDS ORDERED: Potassium Chloride 20 MEQ TAB ONE (20:04)
[2022-12-28] MEDS ORDERED: Potassium Chloride 20 MEQ/100 ML PREMIX BAG ONE (20:16)
== END 2022-12-29 00:50 | disposition short-term general hospital (02) ==
LOC: ERS 12:35
DX: K76.89 Other specified diseases of liver (principal)
CPT/HCPCS: 36415; 74176; 76705; 80053; 80306; 80307; 81001; 82248; 82977; 83605; 83690; 85025; 85610; 85730; 87040; 87077; 87086; 87186; 96365; 96366; 96367; J2543; J3370; J3480

== ENCOUNTER 2023-03-09 12:29 | Outpatient (CLI) | payer BC | END 2023-03-09 12:30 | disposition home or self-care (01) | LOC: BICMAMMO 12:29 | DX: Z12.31 Encounter for screening mammogram for malignant neoplasm of breast (principal); Z80.3 Family history of malignant neoplasm of breast; Z91.89 Other specified personal risk factors, not elsewhere classified | CPT/HCPCS: 77063; 77067 ==

== ENCOUNTER 2024-05-23 08:32 | Outpatient (CLI) | payer BC | END 2024-05-23 08:33 | disposition home or self-care (01) | LOC: ULT 08:32 | PROVIDERS: ATTEND Physician Assistant | DX: K74.69 Other cirrhosis of liver (principal); K76.0 Fatty (change of) liver, not elsewhere classified | CPT/HCPCS: 76705 ==